=== PATIENT | female | born 1965 | race Hispanic/Latino ===

== ENCOUNTER 2024-02-03 14:41 | Emergency (ER) | payer MEDICAID ==
[~2024-02-03] VITALS: Ht 162.6 cm; Wt 70.8 kg
[2024-02-03] MEDS ORDERED: NAPR275T96 PO (15:59)
[2024-02-03] MEDS ORDERED: CEPH500B PO (15:59)
[2024-02-03] MEDS: DIAZEPAM 5 MG/ML 2 ML SYG IM ONE (16:49)
[2024-02-03 16:53] VITALS: BP 140/76; PULSE 80; RESP 16; O2SAT 100
== END 2024-02-03 16:58 | disposition home or self-care (01) ==
LOC: EDH 14:41
DX: S10.91XA Abrasion of unspecified part of neck, initial encounter (principal); E11.9 Type 2 diabetes mellitus without complications; Z90.710 Acquired absence of both cervix and uterus; V89.0XXA Person injured in unspecified motor-vehicle accident, nontraffic, initial encounter; Y93.I9 Activity, other involving external motion; Y92.89 Other specified places as the place of occurrence of the external cause; Y99.8 Other external cause status
CPT/HCPCS: 99285; 70450; 72125; 71250; 74176; 96372; J3360

== ENCOUNTER 2025-09-24 18:57 | Emergency (ER) | payer MEDICAID ==
[~2025-09-24] VITALS: Ht 162.6 cm; Wt 79.4 kg
[~2025-09-24 18:57] MED LIST: CEPH500B PO; NAPR275T96 PO
--- NOTE | 2025-09-24 19:01 | NUR ---
PT UNABLE TO RECALL PCP NAME, STATE SHE GOES TO [facility]
[2025-09-24 19:16] VITALS: BP 129/71; PULSE 73; RESP 18; TEMP 98.2; O2SAT 100
--- NOTE | 2025-09-24 19:25 | ERN ---
ED Note History of Present Illness Stated Complaint: RASH Chief Complaint: Skin Rash/Abscess Time Seen by MD: 19:11 Dictation: This is a 60-year-old obese female who presented to the emergency room for evaluation of a rash on her ankles. Apparently this started 2 days ago only on the legs and she did not know if it was an insect bite. Rash does not have any itching but they appear to be round lesions. No fever chills or rigors. Arthralgias or joint pains. Patient stated that she has had a toothache and was given amoxicillin and she has been on it which is the only new medication. No abdominal pain nausea vomitings Temperature 98.2 pulse 73 respirations 18 blood pressure 129/71 with a pulse oximetry of 100% on room air Chronic medical problems include diabetes mellitus type 2, hypertension, hypercholesterolemia and glaucoma Allergies: Coded Allergies: No Known Drug Allergies (Unverified Allergy, Unknown, 02/03/24) Home Meds Active Scripts Naproxen Sodium (Naproxen Sodium) 275 Mg Tablet, 275 MG PO BID for 7 Days, #14 TAB Prov:NAHUM SPARKS MD 02/03/24 Cephalexin Monohydrate (Keflex) 500 Mg Cap, 500 MG PO BID for 7 Days, #14 CAP Prov:NAHUM SPARKS MD 02/03/24 Past Medical History Past Medical History: Diabetes-Type II, Glaucoma, High Cholesterol, Hypertension Surgical History: Hysterectomy Family History: Negative Social History: Negative History: Not Applicable RN Note Reviewed/Agreed w/PFSH: Yes Review of System Dictation Constitutional: Negative for fever,chills, and weight loss Eyes: Negative for injury, pain,redness, and discharge ENT: Negative for injury,pain or swelling Cardiovascular: Negative for chest pain, palpitations, and edema Respiratory: Negative for shortness of breath, cough, and wheezing, Abdomen/GI: Negative for abdominal pain, nausea, vomiting, diarrhea, and constipation Back: Negative for injury and pain : Negative for injury, bleeding and discharge MS/Extremity: Negative for injury and deformity Skin: Positive for rash on ankles but 2 days Neuro: Negative for headache, weakness, numbness, tingling, and seizure Psych: Negative for suicide ideation, homicidal ideation, and hallucinations Initial Vital Sign VS Vital Signs Date Time Temp Pulse Resp B/P (MAP) Pulse Ox O2 Delivery O2 Flow Rate FiO2 09/24/25 18:59 98.2 73 18 129/71 100 Room Air 09/24/25 19:16 0 21 Physical Exam Dictation General: awake, alert, NAD Head/Face: Normocephalic, atraumatic Eyes: PERRL, EOMI, vision at baseline ENT: oral cavity clear, TMs clear, no signs of infection Neck: Trachea midline, supple, no nuchal rigidity Cardiovascular: RRR, normal S1/S2, No MRGs, no JVD Respiratory: CTAB, no respiratory distress, No rales or wheezes Abdomen: Soft, non-tender, non-distended, normal bowel sounds, no guarding or rebound. Skin: Warm, dry, normal turgor, circular macules 3 or 4 on ankles bilaterally and medial aspect of the legs with central clearing appearing like target lesions MS/Extremity: Pulses equal, no cyanosis, neurovascular intact, FROM Neuro: COAx4, GCS 15, strength 5/5, CN 2-12 intact, normal cerebellar exam, normal gait, Psych: Normal behavior, mood, and affect normal Extremities-trace edema without any palpable cords, Homans sign is negative ED Course ED Course Orders Procedure Category Date Status Time Methylprednisolone PHA 09/24/25 In Process Succ 40mg (Solu-Medro 20:00 Diphenhydramine Hcl PHA 09/24/25 In Process (Benadryl Cap) 20:00 Water For PHA 09/24/25 Complete Injection,Sterile 19:51 Current Medications Medications (Trade) Dose Ordered Sig/Cleo Route PRN Reason Start Time Stop Time Status Last Admin Dose Admin Diphenhydramine HCl (BENAdryl CAP) 25 mg ONCE ONCE PO 09/24/25 20:00 09/24/25 20:01 Methylprednisolone Sodium Succinate (Solu-medROL 40MG) 40 mg ONCE ONCE IM 09/24/25 20:00 09/24/25 20:01 Sterile Water (Sterile Water, Injection) 10 ml STK-MED ONCE .ROUTE 09/24/25 19:51 09/24/25 19:51 DC Vital Signs Date Time Temp Pulse Resp B/P (MAP) Pulse Ox O2 Delivery O2 Flow Rate FiO2 09/24/25 19:16 98.2 73 18 129/71 100 Room Air* 0 21 09/24/25 18:59 98.2 73 18 129/71 100 Room Air Medical Decision Making MDM Differential diagnosis: Urticaria, angioedema, impending anaphylaxis, impetigo, contact dermatitis, insect bites, erythema multiforme acne, allergic reaction, rosacea, butterfly rash of systemic lupus erythematosus, This is a 60-year-old obese female who presented to the emergency room for evaluation of a rash on her ankles. Apparently this started 2 days ago only on the legs and she did not know if it was an insect bite. Rash does not have any itching but they appear to be round lesions. No fever chills or rigors. Arthralgias or joint pains. Patient stated that she has had a toothache and was given amoxicillin and she has been on it which is the only new medication. No abdominal pain nausea vomitings Temperature 98.2 pulse 73 respirations 18 blood pressure 129/71 with a pulse oximetry of 100% on room air Chronic medical problems include diabetes mellitus type 2, hypertension, hypercholesterolemia and glaucoma Previous outside records reviewed: Old ER visits. Risk of complication and/or morbidity or mortality of patient management: None Medications-Per medication reconciliation Need for hospitalization: Patient does not meet criteria for hospitalization. Need for emergency major/minor surgery: No There are no social concerns with this patient. Prescription drug management Prescriptions will include symptomatic care Patient's prior external medical records from other ER visits were reviewed by me as indicated. Prior testing and results from previous visits were reviewed. Prior tests were taken into account with medical decision making and resource utilization, independent historian/historians were used to obtain complete medical history. I independently interpreted the test that were performed, results were reviewed by me and considered findings on radiology if ordered. Medical management and examination interpretation discussions were had by me with other qualified healthcare professionals as indicated for the patient's care. DX & DISP Disposition: Discharge Departure Impression: Primary Impression: Erythema multiforme Additional Impression: Allergic reaction to amoxicillin/clavulanic acid Condition: Stable Scripts Diphenhydramine HCl (Benadryl) 50 Mg Cap 50 MG PO TIDP for itching rash for 10 Days, #30 CAP Prov: DANIAL COATES MD 09/24/25 Prednisone (Prednisone) 20 Mg Tablet 1 TAB PO AD for 6 Days, #14 TAB 0 Refills TAKE 1 TAB BY MOUTH THREE TIMES PER DAY X3 DAYS, THEN TAKE 1 TAB BY MOUTH TWICE A DAY X2 DAYS, THEN TAKE 1 TAB BY MOUTH ONCE A DAY X1 DAY. Prov: DANIAL COATES MD 09/24/25 Additional Instructions: Patient and the caregiver have been informed of all the diagnostic tests and the imaging conducted during the today's visit to the emergency room and has verbalized understanding of the results I have personally reviewed and interpreted all diagnostic exams performed here in the ER today as well as the vital signs documented by the nursing staff. The patient is now being discharged to home and should follow up with the primary care physician or the specialist as directed by the ER staff. 1 schedule a follow-up appointment; call your primary care physician's office on the next business day to set up a follow-up appointment. 2. Monitor symptoms; if your symptoms worsen return to the emergency room immediately. 3. Return to school/work; you may return to work or school in 2 days or as directed by your primary care physician. 4. Manage pain and fever; take [id number] Tylenol or Advil for pain or fever if there are no contraindications follow the recommended dosage instructions. 5. Stay well hydrated; drink plenty of oral fluids to stay hydrated. 6. Take prescribed medications; take any medications prescribed in the emergency room as directed bring them with you to your primary care physician visit for possible adjustments. 7. Complete medication course; finish the entire course of medication as prescribed even if you start feeling better. Do not have any leftover medication unless instructed otherwise. 8. Follow up on culture results; if a urine culture and wound culture was ordered in the emergency room please follow-up with your primary care physician within 2-3 days to review the culture and sensitivity report for appropriate antibiotic therapy adjustments. 9. Resume home medications; you may resume taking your home medications unless instructed otherwise. Referrals: MARCELLUS PATEL (PCP) DANIAL COATES MD Sep 24, 2025 19:24
[2025-09-24] MEDS ORDERED: PRED20TA3 PO (20:01)
[2025-09-24] MEDS ORDERED: DIPH50CA38 PO (20:01)
[2025-09-24] MEDS: Solu-medROL 40MG VIAL IM ONE (20:07)
== END 2025-09-24 20:18 | disposition home or self-care (01) ==
LOC: EDH 18:57
DX: L51.9 Erythema multiforme, unspecified (principal); T36.0X5A Adverse effect of penicillins, initial encounter; T36.1X5A Adverse effect of cephalosporins and other beta-lactam antibiotics, initial encounter; E11.9 Type 2 diabetes mellitus without complications; E78.00 Pure hypercholesterolemia, unspecified; I10 Essential (primary) hypertension; Z90.710 Acquired absence of both cervix and uterus; Y92.89 Other specified places as the place of occurrence of the external cause
CPT/HCPCS: 96372; 99283; Q0163 ×2; J2919